=== PATIENT | female | born 2000 | race Caucasian/White ===

== ENCOUNTER 2022-03-23 10:32 | Emergency (ER) | payer SELFPAY ==
[2022-03-23] MEDS ORDERED: ONDANSETRON 4 MG/2 ML VIAL ONE (10:59)
--- NOTE | 2022-03-23 11:19 | RAD REPORT ---
EXAM DESCRIPTION: CT - Head Brain Wo Cont - 03/23/2022 11:08 am CLINICAL HISTORY: Seizure, new-onset, history of trauma COMPARISON: No comparisons TECHNIQUE: Axial 5 mm thick images of the head were obtained without IV contrast. All CT scans are performed using dose optimization technique as appropriate and may include automated exposure control or mA/KV adjustment according to patient size. FINDINGS: No intracranial hemorrhage, mass, edema or shift of mid-line structures. No acute infarcti on changes seen. No abnormal extra-axial fluid collections. Ventricles are normal. Mastoid air cells and visualized portions of the paranasal sinuses are clear. No acute bony findings. IMPRESSION: Negative non-contrast CT head examination.
[2022-03-23 11:25] LABS: Urine Blood Negative (Negative); Urine Glucose Negative (Negative); Urine Protein Trace (Negative)
[2022-03-23 11:25] LABS: Absolute Lymphocytes (CBC) 1.8 K/uL (0.7-4.9); Hematocrit 38.4 % (36.0-45.0); Lymphocytes % 28.2 % (15.3-44.8); MCV 80.8 fL (80-100); MPV 9.6 fL (7.6-11.3); RBC Red Blood Cell Count 4.75 M/uL (3.86-4.86)
[2022-03-23 11:31] LABS: Albumin 4.1 g/dL (3.4-5.0); Bilirubin Total 0.2 mg/dL (0.2-1.0); Potassium 4.2 mmol/L (3.5-5.1); Protein, Total 8.5 g/dL (6.4-8.2)
--- NOTE | 2022-03-23 12:49 | ER ---
Nurse's Notes [facility] Name: Shaneka Alatorre Age: 21 yrs Sex: Female : 2000 Arrival Date: 03/23/2022 Time: 10:34 Bed 20 Private MD: Diagnosis: Other seizures Presentation: 03/23 11:02 Chief complaint: EMS states: Toned out for witnessed seizure. Pt sitting in chair and jl7 fell out of chair, classmates reported shaking for about 2 minutes. Post ictal on scene, A\T\O4 on arrival to ED. Coronavirus screen: At this time, the client does not indicate any symptoms associated with coronavirus-19. Ebola Screen: No symptoms or risks identified at this time. Initial Sepsis Screen: Does the patient meet any 2 criteria? No. Patient's initial sepsis screen is negative. Does the patient have a suspected source of infection? No. Patient's initial sepsis screen is negative. Risk Assessment: Do you want to hurt yourself or someone else? Patient reports no desire to harm self or others. Onset of symptoms was March 23, 2022. Care prior to arrival: IV initiated. 20 GA, in the left antecubital area, Glucose check: 102. 11:02 Method Of Arrival: EMS: [facility] jl7 11:02 Acuity: DENITA 2 jl7 Triage Assessment: 11:05 General: Appears in no apparent distress. uncomfortable, Behavior is calm, cooperative, jl7 appropriate for age. Pain: Complains of pain in tongue and Joaquin Pain currently is 7 out of 10 on a pain scale. Neuro: Level of Consciousness is awake, alert, obeys commands, Oriented to person, place, time, situation, Pupils are PERRLA. 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 - Social history:: Smoking status: Patient reports the use of cigarette tobacco products, denies chronic smoking, but will smoke occasionally, Patient uses street drugs, marijuana. Screenin:08 Abuse screen: Denies threats or abuse. Denies injuries from another. Nutritional jl7 screening: No deficits noted. Tuberculosis screening: No symptoms or risk factors identified. Fall Risk IV access (20 points). Total [place] Fall Scale indicates No Risk (0-24 pts). Vital Signs: 11:02 BP 92 / 66; Pulse 68; Resp 19; Temp 97.8; Pulse Ox 100% ; Weight 54.43 kg; Height 5 ft. jl7 4 in. (162.56 cm); Pain 7/10; 12:25 BP 99 / 71; Pulse 73; Resp 15; Pulse Ox 100% ; jl7 12:45 BP 99 / 63; Pulse 65; Resp 15; Pulse Ox 100% ; jl7 11:02 Body Mass Index 20.60 (54.43 kg, 162.56 cm) jl7 [place] Coma Score: 11:05 Eye Response: spontaneous(4). Verbal Response: oriented(5). Motor Response: obeys jl7 commands(6). Total: 15. ED Course: 10:34 Patient arrived in ED. jl7 10:35 Glenn Chow NP is PHCP. pm1 10:35 Lucho Mishra MD is Attending Physician. pm1 10:48 Genia Tate RN is Primary Nurse. jl7 11:05 Triage completed. jl7 11:05 Arm band placed on right wrist. jl7 11:08 CT Head Brain wo Cont In Process Unspecified. EDMS 11:08 Patient has correct armband on for positive identification. Placed in gown. Bed in low jl7 position. Call light in reach. Side rails up X2. Seizure precautions initiated. Client placed on continuous cardiac and pulse oximetry monitoring. NIBP monitoring applied. Warm blanket given. 11:08 Initial lab(s) drawn, by me, sent to lab. Maintain EMS IV. Dressing intact. Good blood jl7 return noted. Site clean \T\ dry. Gauge \T\ site: 20 L AC. 12:48 Virgil Conroy MD is Referral Physician. pm1 13:23 No provider procedures requiring assistance completed. IV discontinued, intact, jl7 bleeding controlled, No redness/swelling at site. Pressure dressing applied. Administered Medications: 10:55 Drug: Zofran (Ondansetron) 4 mg Route: IVP; Site: left antecubital; jl7 Medication: 11:08 VIS not applicable for this client. jl7 Outcome: 12:49 Discharge ordered by . pm1 13:23 Discharged to home ambulatory, with family. jl7 13:23 Condition: stable 13:23 Discharge instructions given to patient, family, Instructed on discharge instructions, follow up and referral plans. medication usage, Demonstrated understanding of instructions, follow-up care, medications, Prescriptions given X 1. 13:24 Patient left the ED. jl7 Signatures: Dispatcher [employer] EDMD Glenn Chow NP [employer]ORE COURTESY CLERK pm1 Genia Tate, RN RN jl7
--- NOTE | 2022-03-23 12:50 | EDPHYS ---
Physician Documentation [facility] Name: Shaneka Alatorre Age: 21 yrs Sex: Female : 2000 Arrival Date: 03/23/2022 Time: 10:34 Bed 20 Private MD: ED Physician Lucho Mishra HPI: 03/23 10:47 This 21 yrs old Female presents to ER via EMS with complaints of Probable Seizure. pm1 10:47 The patient presents after having a single isolated seizure, that lasted 2 minute(s), pm1 the episode(s) was witnessed, Classmate. Character of seizure(s): Motor activity: generalized, Incontinence: none, Apnea: the patient did not experience apnea. Seizure onset: just prior to arrival. Context: occurred at school, occurred while the patient was Sitting in desk. Contributing factors: unknown. Seizure Hx: 1 seizure episode in January of this year. Associated injury: Head/face: base of the skull, pain. The patient has experienced a previous episode, approximately 2 months ago. The patient has not recently seen a physician. 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 - Social history:: Smoking status: Patient reports the use of cigarette tobacco products, denies chronic smoking, but will smoke occasionally, Patient uses street drugs, marijuana. ROS: 10:47 Constitutional: Negative for fever, chills, and weight loss, Eyes: Negative for injury, pm1 pain, redness, and discharge, Cardiovascular: Negative for chest pain, palpitations, and edema. 10:47 Neck: Negative for injury, pain, and swelling, Respiratory: Negative for shortness of breath, cough, wheezing, and pleuritic chest pain, Abdomen/GI: Negative for abdominal pain, nausea, vomiting, diarrhea, and constipation, Back: Negative for injury and pain, : Negative for injury, bleeding, discharge, and swelling, MS/Extremity: Negative for injury and deformity, Skin: Negative for injury, rash, and discoloration. 10:47 ENT: Positive for Abrasion to right side of tongue, bit her tongue. 10:47 Neuro: Positive for headache, of the Base of skull. 10:47 All other systems are negative. Exam: 10:47 Constitutional: This is a well developed, well nourished patient who is awake, alert, pm1 and in no acute distress. 10:47 Eyes: Pupils equal round and reactive to light, extra-ocular motions intact. Lids and lashes normal. Conjunctiva and sclera are non-icteric and not injected. Cornea within normal limits. Periorbital areas with no swelling, redness, or edema. 10:47 Skin: Warm, dry with normal turgor. Normal color with no rashes, no lesions, and no evidence of cellulitis. MS/ Extremity: Pulses equal, no cyanosis. Neurovascular intact. Full, normal range of motion. 10:47 Head/face: Noted is no obvious of injury or deformity except tenderness, that is mild, of the Base of skull. 10:47 ENT: Exam is negative for acute changes, Nose: no acute changes, Mouth: no acute changes, Lips: normal, moist, Oral mucosa: normal, pink and intact, moist. 10:47 Neck: Exam negative for acute changes, C-spine: no acute changes. 10:47 Cardiovascular: Exam negative for acute changes, Rate: normal, Rhythm: regular, Pulses: no pulse deficits are appreciated, Heart sounds: normal, normal S1and S2. 10:47 Respiratory: Exam negative for acute changes, respiratory distress, shortness of breath. 10:47 Neuro: Exam negative for acute changes, Orientation: is normal, Mentation: is normal, Motor: is normal, moves all fours. Vital Signs: 11:02 BP 92 / 66; Pulse 68; Resp 19; Temp 97.8; Pulse Ox 100% ; Weight 54.43 kg; Height 5 ft. jl7 4 in. (162.56 cm); Pain 7/10; 12:25 BP 99 / 71; Pulse 73; Resp 15; Pulse Ox 100% ; jl7 12:45 BP 99 / 63; Pulse 65; Resp 15; Pulse Ox 100% ; jl7 11:02 Body Mass Index 20.60 (54.43 kg, 162.56 cm) jl7 [place] Coma Score: 11:05 Eye Response: spontaneous(4). Verbal Response: oriented(5). Motor Response: obeys jl7 commands(6). Total: 15. MDM: 10:38 Patient medically screened. pm1 12:47 Data reviewed: vital signs. Data interpreted: Pulse oximetry: on room air is 100 %. pm1 Interpretation: normal. 12:47 Counseling: I had a detailed discussion with the patient and/or guardian regarding: the pm1 historical points, exam findings, and any diagnostic results supporting the discharge/admit diagnosis, lab results, radiology results, the need for outpatient follow up, a neurologist, to return to the emergency department if symptoms worsen or persist or if there are any questions or concerns that arise at home. 12:47 ED course: Patient offered another EKG but she refused. Abnormal findings on EKG such pm1 as right word axis deviation were due to inappropriately placed EKG leads in I explained that to the patient and her family members. 03/23 10:47 Order name: CBC with Diff; Complete Time: 11:34 pm1 03/23 10:47 Order name: CMP; Complete Time: 11:34 pm1 03/23 10:47 Order name: EKG; Complete Time: 10:47 pm1 03/23 10:47 Order name: CT Head Brain wo Cont; Complete Time: 11:23 pm1 03/23 11:25 Order name: Urine Dipstick-Ancillary; Complete Time: 11:34 EDMS 03/23 10:47 Order name: EKG - Nurse/Tech; Complete Time: 11:40 pm1 03/23 10:47 Order name: Urine Dipstick-Ancillary (obtain specimen); Complete Time: 11:40 pm1 03/23 10:47 Order name: Urine Test (obtain specimen); Complete Time: 11:40 pm1 03/23 10:47 Order name: IV Saline Lock; Complete Time: 11:10 pm1 EC: Rate is 70 beats/min. Rhythm is irregular. QRS [place] is Normal. DC interval is normal. pm1 QRS interval is normal. QT interval is normal. No Q waves. T waves are Normal. No ST changes noted. Clinical impression: Sinus rhythm with marked sinus arrhythmia. Administered Medications: 10:55 Drug: Zofran (Ondansetron) 4 mg Route: IVP; Site: left antecubital; jl7 Disposition Summary: 09/14/22 12:49 Discharge Ordered Location: Home pm1 Problem: new pm1 Symptoms: have improved pm1 Condition: Stable pm1 Diagnosis - Other seizures pm1 Followup: pm1 - With: Emergency Department - When: As needed - Reason: Worsening of condition Followup: pm1 - With: Virgil Conroy MD - When: 2 - 3 days - Reason: Recheck today's complaints, Continuance of care, Re-evaluation by your physician Discharge Instructions: - Discharge Summary Sheet pm1 - Seizure, Adult pm1 Forms: - Medication Reconciliation Form pm1 - Thank You Letter pm1 - Antibiotic Education pm1 - Prescription Opioid Use pm1 Prescriptions: - Vimpat 100 mg Oral tablet - take 1 tablet by ORAL route 2 times per day; 30 tablet; Refills: 0, Product pm1 Selection Permitted Addendum: 03/24/2022 19:42 Co-signature as Attending Physician, Lucho Mishra MD. r n Signatures: Dispatcher [employer] EDLucho Puente MD MD rn Marinas, Patrick, OPTOMECHANICAL ENGINEER OPTOMECHANICAL ENGINEER pm1 Genia Tate RN RN jl7
[2022-03-24 02:50] VITALS: TEMP 97.8; O2SAT 100
[2022-03-24 02:54] VITALS: BP 99/63
--- NOTE | 2022-03-24 13:38 | EKG ---
Test Date: 2022-03-23 Test Time: 11:21:15 Criminal Justice Professor: JEAN CARLOS MEASUREMENT RESULTS: Intervals: Rate: 70 AR: 146 QRSD: 94 QT: 390 QTc: 421 [place]: P: 61 AR: 146 QRS: 90 T: 62 INTERPRETIVE STATEMENTS: Sinus rhythm with marked sinus arrhythmia Rightward axis Incomplete right bundle branch block Borderline ECG No previous ECG available for comparison Electronically Signed On 03-24-22 13:35:24 CDT by Hansel Robles
== END 2022-03-23 13:24 | disposition home or self-care (01) ==
LOC: ER 10:32
DX: R56.9 Unspecified convulsions (principal); F41.9 Anxiety disorder, unspecified; Z72.0 Tobacco use
CPT/HCPCS: 36415; 70450; 80053; 81003; 85025; 93005; 96374; 99284; J2405